=== PATIENT | male | born 1955 | race African-American/Black ===

== ENCOUNTER 2017-11-25 13:52 | Inpatient (IN) | payer MEDICARE, OTHER ==
[~2017-11-25] VITALS: Ht 322.6 cm; Wt 544.3 kg
[~2017-11-25 13:52] MED LIST: ACETAMINOPHEN325 M1 PEG; AMIODARONE HCL200 MG PEG; ASPIRIN81 MG PEG; ATORVASTATIN CA20 MG PEG; CARVEDILOL12.5 MG PO; CLONIDINE HCL0.1 MG PEG; COMBIVENT RESPIM4 GM IH; DOCUSATE SODIU100 MG PO; FAMOTIDINE20 MG PO; GUAIFENESI100 MG/5 M PEG; HYDRALAZINE HCL25 MG PEG; LACTULOSE20 GM/30 M PEG; LEVETIRACETAM500 MG PEG; LORAZEPAM0.5 MG PEG; MULTIVITAMINS1 EAC6 PEG; PRO-STAT 64 LI887 ML PEG; PROZAC20 MG PEG; TYLENOL WITH C1 EACH PEG; VITAMIN C500 M1 PEG
[2017-11-25] MEDS ORDERED: SODIUM CHLORIDE 0.9% 500ML 500 ML IV ONE (14:00)
--- NOTE | 2017-11-25 14:44 | Diagnostic Imaging Report ---
EXAMINATION: CHEST SINGLE (PORTABLE) INDICATION: Cough COMPARISON: Chest x-ray 10/04/2017 FINDINGS: AP view TUBES and LINES: None. LUNGS: Lungs are not well inflated. Calcified right hilar lymph nodes. Perihilar venous crowding. There is mild prominence of the central pulmonary vasculature, consistent with pulmonary venous congestion. PLEURA: Trace right pleural effusion along fissure. HEART AND MEDIASTINUM: Cardiac size is moderately enlarged. BONES AND SOFT TISSUES: No acute osseous lesion. Soft tissues are unremarkable. UPPER ABDOMEN: No free air under the diaphragm. IMPRESSION: Hypoinflated lungs with vascular crowding. Mild central pulmonary venous congestion. Signed by: Dr. Michael Simons M.D. on 11/25/2017 2:40 PM
[2017-11-25 15:30] LABS: BILIRUBIN,URINE NEGATIVE (NEGATIVE); COLOR,URINE YELLOW (YELLOW); KETONES,URINE NEGATIVE (NEGATIVE); LEUKOCYTE ESTERASE ,URINE 2+ (NEGATIVE); NITRITE,URINE NEGATIVE (NEGATIVE); URINE UROBILINOGEN 8 mg/dL (0.2 - 1)
[2017-11-25] MEDS ORDERED: ALTEPLASE RECOMBINANT 2 MG/2 ML VIAL IV ONE (15:30)
[2017-11-25 15:32] LABS: CLARITY,URINE SL CLOUDY (CLEAR); PROTEIN,URINE DIPSTICK TRACE (NEGATIVE)
[2017-11-25 15:44] LABS: BACTERIA,URINE FEW /HPF; EPITHELIAL CELLS,URINE FEW /LPF
[2017-11-25] MEDS ORDERED: SODIUM CHLORIDE 0.9% 250ML 250 ML ONE (18:11)
[2017-11-25 18:17] LABS: BASOPHILS % 0.3 % (0.0-1.0); EOSINOPHILS # (AUTO) 0.3 (0.0-0.4); HEMATOCRIT 40.4 % (38.2-49.6); HEMOGLOBIN 12.1 g/dL (14.0-18.0); LYMPHOCYTES # (AUTO) 2.7 (1.0-3.2); MEAN CORPUSCULAR HEMOGLOBIN 33.1 pg (28-32); MEAN CORPUSCULAR VOLUME 110.4 fL (81-99); MONOCYTES # (AUTO) 0.8 (0.2-0.8); MONOCYTES % 8.5 % (4.4-11.3); NEUTROPHILS % 60.7 % (38.7-80.0); PLATELET COUNT 135 x10e3/uL (140-360); RED BLOOD COUNT 3.66 x10e6/uL (4.3-5.7); RED CELL DISTRIBUTION WIDTH 15.9 % (11.7-14.4)
--- NOTE | 2017-11-25 18:20 | Diagnostic Imaging Report ---
EXAMINATION: CHEST XRAY LINE PLACEMENT INDICATION: \S\line placement COMPARISON: Chest x-ray 11/25/2017 at 1420. 10/04/2017 FINDINGS: AP view TUBES and LINES: New right IJ central venous catheter with tip at the high SVC. LUNGS: Lungs are not well inflated. Calcified right hilar lymph nodes. Perihilar venous crowding. There is mild prominence of the central pulmonary vasculature, consistent with pulmonary venous congestion. PLEURA: Trace right pleural effusion along fissure. HEART AND MEDIASTINUM: Cardiac size is moderately enlarged. There are atherosclerotic calcifications within the aorta. BONES AND SOFT TISSUES: No acute osseous lesion. Soft tissues are unremarkable. UPPER ABDOMEN: No free air under the diaphragm. IMPRESSION: 1. New right IJ line with tip at high SVC. No pneumothorax. 2. No change in hypoinflated lungs with vascular crowding. Mild central pulmonary venous congestion. Signed by: Dr. Michael Simons M.D. on 11/25/2017 6:17 PM
[2017-11-25] MEDS ORDERED: LACTATED RINGER'S 1,000 ML IV ONE (18:30)
[2017-11-25 18:34] LABS: ALANINE AMINOTRANSFERASE 41 IU/L (0-55); ALBUMIN 1.9 g/dL (3.5-5.0); ALBUMIN/GLOBULIN RATIO 0.4 (0.8-2.0); ALKALINE PHOSPHATASE 43 IU/L (40-150); ANION GAP 11.4 mmol/L (8-16); BLOOD UREA NITROGEN 36 mg/dL (7-26); BUN/CREATININE RATIO 38 (6-25); CALCIUM 8.5 mg/dL (8.4-10.2); CARBON DIOXIDE 26 mmol/L (22-29); CHLORIDE 132 mmol/L (98-107); CREATININE, SERUM 0.95 mg/dL (0.72-1.25); EST GLOMERULAR FILTRATION RATE > 60 ML/MIN (60-); GLUCOSE 84 mg/dL (74-118); POTASSIUM 3.4 mmol/L (3.5-5.1)
[2017-11-25] MEDS ORDERED: DEXTROSE 5% 1,000 ML IV ONE (18:45)
[2017-11-25 19:11] LABS: SODIUM 166 mmol/L (136-145)
[2017-11-25] MEDS: AZITHROMYCIN 500MG/NS 250 ML 250 ML IV SCH (20:48)
[2017-11-26 00:03] VITALS: BP 101/56
[2017-11-26] MEDS: DEXTROSE 5% 1,000 ML IV SCH ×3 (02:06→19:24)
[2017-11-26 06:53] LABS: ALANINE AMINOTRANSFERASE 41 IU/L (0-55); ALBUMIN 1.9 g/dL (3.5-5.0); ALBUMIN/GLOBULIN RATIO 0.4 (0.8-2.0); ALKALINE PHOSPHATASE 44 IU/L (40-150); ANION GAP 10.3 mmol/L (8-16); BLOOD UREA NITROGEN 32 mg/dL (7-26); BUN/CREATININE RATIO 34 (6-25); CALCIUM 8.5 mg/dL (8.4-10.2); CARBON DIOXIDE 30 mmol/L (22-29); CHLORIDE 130 mmol/L (98-107); CREATININE, SERUM 0.93 mg/dL (0.72-1.25); EST GLOMERULAR FILTRATION RATE > 60 ML/MIN (60-); GLUCOSE 89 mg/dL (74-118); POTASSIUM 3.3 mmol/L (3.5-5.1)
[2017-11-26 07:05] LABS: SODIUM 167 mmol/L (136-145)
[2017-11-26] MEDS: COLLAGENASE 5 GM TUBE TP SCH (17:00)
[2017-11-26] MEDS: BALSAM PERU/CASTOR OIL 60 GM OINT...G. TP SCH (17:00)
[2017-11-26] MEDS ORDERED: DEXTROSE 5% 1,000 ML IV ONE ×2 (17:15→18:15)
[2017-11-26] MEDS ORDERED: POTASSIUM CHLORIDE 20MEQ/100ML 100 ML IV ONE (17:30)
[2017-11-26] MEDS: ALBUTEROL/IPRATROPIUM 3 ML NEB NEB SCH ×2 (17:30→19:00)
[2017-11-26] MEDS ORDERED: DOCUSATE SODIUM 100 MG CAP PEG PRN (17:30)
[2017-11-26] MEDS ORDERED: GUAIFENESIN 600 MG TAB PEG PRN (17:30)
[2017-11-26] MEDS ORDERED: HYDRALAZINE HCL 20 MG/ML VIAL IV PRN (17:30)
[2017-11-26] MEDS ORDERED: GUAIFENESIN 200 MG/10 ML UDC PEG PRN (17:30)
[2017-11-26] MEDS ORDERED: LORAZEPAM 0.5 MG TAB PEG PRN (17:30)
[2017-11-26] MEDS ORDERED: ACETAMINOPHEN 325 MG TAB PEG PRN (17:30)
[2017-11-26] MEDS ORDERED: ACETAMINOPHEN 325 MG/10 ML UDC PEG PRN (17:45)
[2017-11-26] MEDS ORDERED: ACETAMINOPHEN 325 MG/10 ML UDC PO PRN (17:45)
[2017-11-26] MEDS: AZITHROMYCIN 500MG/NS 250 ML 250 ML IV SCH (19:24)
[2017-11-26 19:35] VITALS: BP 139/81
[2017-11-26 19:41] VITALS: BP 139/81
[2017-11-26 19:47] VITALS: BP 139/81
[2017-11-26] MEDS: METHYLPREDNISOLONE SOD SUCC 40 MG/ML VIAL IV SCH (21:10)
[2017-11-26] MEDS: HYDRALAZINE HCL 25 MG TAB PEG SCH (21:10)
[2017-11-26] MEDS: ATORVASTATIN 20 MG TAB PEG SCH (21:10)
[2017-11-27] MEDS: DEXTROSE 5% 1,000 ML IV SCH (00:21)
[2017-11-27 00:30] VITALS: BP 123/58
[2017-11-27] MEDS: ALBUTEROL/IPRATROPIUM 3 ML NEB NEB SCH ×3 (01:00→20:00)
[2017-11-27] MEDS: METHYLPREDNISOLONE SOD SUCC 40 MG/ML VIAL IV SCH ×3 (06:14→23:09)
[2017-11-27 06:52] LABS: BASOPHILS % 0.2 % (0.0-1.0); HEMATOCRIT 38.9 % (38.2-49.6); HEMOGLOBIN 11.8 g/dL (14.0-18.0); LYMPHOCYTES # (AUTO) 0.9 (1.0-3.2); LYMPHOCYTES % 14.4 % (18.0-39.1); MEAN CORPUSCULAR HEMOGLOBIN 33.1 pg (28-32); MEAN CORPUSCULAR HGB CONC 30.3 g/dL (31-35); MONOCYTES # (AUTO) 0.1 (0.2-0.8); MONOCYTES % 1.2 % (4.4-11.3); NEUTROPHILS % 83.7 % (38.7-80.0); PLATELET COUNT 133 x10e3/uL (140-360); RED BLOOD COUNT 3.57 x10e6/uL (4.3-5.7); RED CELL DISTRIBUTION WIDTH 15.1 % (11.7-14.4)
[2017-11-27 07:17] LABS: ANION GAP 8.5 mmol/L (8-16); BLOOD UREA NITROGEN 27 mg/dL (7-26); BUN/CREATININE RATIO 32 (6-25); CALCIUM 8.4 mg/dL (8.4-10.2); CARBON DIOXIDE 27 mmol/L (22-29); CHLORIDE 129 mmol/L (98-107); CREATININE, SERUM 0.84 mg/dL (0.72-1.25); EST GLOMERULAR FILTRATION RATE > 60 ML/MIN (60-); GLUCOSE 137 mg/dL (74-118); MAGNESIUM 2.1 MG/DL (1.3-2.1); POTASSIUM 3.5 mmol/L (3.5-5.1)
[2017-11-27 07:24] LABS: SODIUM 161 mmol/L (136-145)
--- NOTE | 2017-11-27 07:26 | Diagnostic Imaging Report ---
Examination: Single AP view of the chest. COMPARISON: 11/25/2017 INDICATION: Bronchitis DISCUSSION: See impression IMPRESSION: 1. Right internal jugular central venous catheter is unchanged in position. 2. Stable cardiomediastinal contour with mild enlargement of the cardiac shadow and pulmonary venous congestion. No new airspace consolidation. Signed by: Dr. Rod Mosqueda M.D. on 11/27/2017 7:23 AM
[2017-11-27 07:40] LABS: FREE T4 (FREE THYROXINE) 1.23 ng/dL (0.8-1.8); THYROID STIMULATING HORMONE 0.662 uIU/mL (0.350-4.940)
[2017-11-27 08:00] VITALS: BP 119/58
[2017-11-27 08:21] VITALS: BP 119/58
[2017-11-27] MEDS ORDERED: COLLAGENASE OINTMENT 30 GM TUBE TP SCH (09:00)
[2017-11-27] MEDS ORDERED: CARVEDILOL 12.5 MG TAB PEG SCH (09:00)
[2017-11-27] MEDS ORDERED: LEVETIRACETAM 500 MG TAB PEG SCH (09:00)
[2017-11-27] MEDS ORDERED: MULTIVITAMINS/MINERALS TAB PEG SCH (09:00)
[2017-11-27] MEDS: HYDRALAZINE HCL 25 MG TAB PEG SCH ×3 (09:00→21:00)
[2017-11-27] MEDS ORDERED: DEXTROSE 5% 1,000 ML IV SCH (09:30)
[2017-11-27] MEDS ORDERED: FUROSEMIDE INJ 10 MG/ML 4 ML VIAL IV ONE (10:00)
[2017-11-27] MEDS: FAMOTIDINE 20 MG TAB PEG SCH ×2 (10:41→18:32)
[2017-11-27] MEDS: LEVETIRACETAM ORAL SOLUTION 500 MG/5 ML SOLN PEG SCH ×2 (10:41→18:32)
[2017-11-27] MEDS: AMIODARONE HCL 200 MG TAB PEG SCH (10:41)
[2017-11-27] MEDS: LACTULOSE SYRUP 20 GM/30 ML UDC PEG SCH (10:41)
[2017-11-27] MEDS: ASPIRIN 81 MG CHEW TAB PEG SCH (10:41)
[2017-11-27] MEDS: MULTIVITAMINS 5 ML LIQUID PEG SCH (10:41)
--- NOTE | 2017-11-27 12:09 | Diagnostic Imaging Report ---
PROCEDURE:ABDOMINAL ULTRASOUND COMPARISON:Abdominal ultrasound 10/02/2017. INDICATIONS:DISTENTION FINDINGS: Liver: 10.4 cm in length in the right midclavicular line. Normal hepatic parenchymal echogenicity. No focal mass. Main portal vein: 1 cm in caliber. Hepatopedal flow. Gallbladder: Mild wall thickening likely attributable to gallbladder collapse. No calculus or pericholecystic fluid. Common Bile Duct: 0.4 cm in caliber. No echogenic filling defect. Sonographic Dahl's sign: Reported as negative. Right kidney: 10.9 cm in length. No solid or cystic mass, echogenic calculi, or hydronephrosis. Increased parenchymal echogenicity. Left kidney: 9.2 cm in length. No solid or cystic mass, echogenic calculi, or hydronephrosis. Increased parenchymal echogenicity. Spleen: 8.3 cm in length. Normal parenchymal echotexture. Pancreas: The visualized portions of the pancreas are normal. Inferior vena cava: Patent. Aorta: Non-aneurysmal. Ascites: None. CONCLUSION: Collapsed gallbladder without cholelithiasis or sonographic evidence of acute cholecystitis. Increased renal cortical echogenicity suggestive of medical renal disease. Dictated by: Rod Mosqueda M.D. on 11/27/2017 at 12:17 Electronically approved by: Rod Mosqueda M.D. on 11/27/2017 at 12:17
[2017-11-27 12:35] VITALS: BP 141/63
--- NOTE | 2017-11-27 14:08 | Consultation ---
DATE OF CONSULTATION: PULMONARY CONSULTATION REASON FOR THE CONSULT: Cough. HPI: Mr. Benjamin is a 62-year-old male. He is nonverbal, is a care home resident from [facility], was brought into the emergency room because of altered mental status. Patient was having cough and fever as well. Per the ER records, he is unable to give any history as he is nonverbal. His influenza testing was negative. Review of lab data shows that patient's white count of 5000, hemoglobin 11.8. Chemistry showing sodium of 167 on admission, it is 161 now. His chest x-ray, I reviewed the images showing possibility of right lower lobe infiltrate versus congestion. REVIEW OF SYSTEMS: Unable to elicit any as patient is nonverbal. PAST MEDICAL HISTORY 1. Hypernatremia. 2. Bedbound. 3. PEG tube status. 4. Dementia. 5. Hypertension. 6. Atrial fibrillation. 7. History of stroke. FAMILY HISTORY AND SOCIAL HISTORY: He lives at [facility]. PHYSICAL EXAM VITALS: Temperature 97.2, pulse of 60, blood pressure 119/58, respiratory rate of 18, O2 sat 100% on 4 liters. SKIN: Warm and dry. GENERAL APPEARANCE: He is a middle-aged male, aphasic, noncommunicative. HEENT: Head atraumatic, normocephalic. NECK: Supple. CHEST: Prolonged expiratory phase, no wheezing. HEART: S1, S2 audible. ABDOMEN: Soft, has a PEG tube. EXTREMITIES: No clubbing or cyanosis. LABORATORY DATA: Sodium 161, potassium 3.5, chloride 129, bicarb 27, BUN 27, creatinine 0.8. White count of 5000, hemoglobin 11.8, platelets 133. Influenza is negative. ASSESSMENT: Mr. Benjamin is a 62-year-old male who is in vegetative state. He is aphasic, noncommunicative, presented with altered mental status, found to be hypernatremia, also was having dry cough and prolonged expiratory phase on exam. Chest x-ray is showing possibility of pneumonia. I have compared the films from 11/27/2017 to 09/26/2017 and possibly can have right middle lobe infiltrate. CURRENT PROBLEMS 1. Possibly aspiration pneumonia, pneumonitis. 2. Reactive airways and cough due to pneumonitis. 3. Hypernatremia. 4. Dehydration. 5. Persistent vegetative state. 6. Aphasic and noncommunicative. 7. PEG tube status. 8. Bedbound. PLAN 1. Agree with IV D5W bolus, which was ordered. Will start the patient on free water through PEG tube. 2. Will continue the patient on Solu-Medrol, will reduce the dose, possibly has reactive airways due to aspiration pneumonitis. 3. Start the patient on nebulizer treatment as well. 4. I will start the patient on IV Zosyn. I think possibly patient has aspiration pneumonitis. Thank you for this consult. Job#: [id number] PAT
[2017-11-27] MEDS: PIPER-TAZ 3.375 GM 50 ML IV SCH ×2 (14:56→23:09)
[2017-11-27 16:50] VITALS: BP 124/58
[2017-11-27] MEDS: BALSAM PERU/CASTOR OIL 60 GM OINT...G. TP SCH ×2 (17:31→18:54)
[2017-11-27] MEDS: MAGNESIUM OXIDE 400 MG TAB PEG SCH (18:32)
[2017-11-27] MEDS: ZINC SULFATE 220 MG CAP PEG SCH (18:32)
[2017-11-27] MEDS: ASCORBIC ACID 500 MG TAB PEG SCH (18:32)
[2017-11-27] MEDS: OYST-CAL-D 500MG TABLET PEG SCH (18:32)
[2017-11-27] MEDS: COLLAGENASE 5 GM TUBE TP SCH (18:53)
[2017-11-27] MEDS: BUDESONIDE 0.5MG/2 ML NEB INH SCH (19:00)
[2017-11-27 20:00] VITALS: BP 114/58
[2017-11-27] MEDS: ATORVASTATIN 20 MG TAB PEG SCH (23:09)
[2017-11-28] VITALS (7 sets, daily range): BP systolic 101–146; BP diastolic 57–69
[2017-11-28] MEDS: ALBUTEROL/IPRATROPIUM 3 ML NEB NEB SCH ×4 (01:00→20:06)
[2017-11-28] MEDS: PIPER-TAZ 3.375 GM 50 ML IV SCH ×3 (05:23→23:40)
[2017-11-28] MEDS: METHYLPREDNISOLONE SOD SUCC 40 MG/ML VIAL IV SCH ×3 (05:23→23:40)
[2017-11-28 06:09] LABS: BASOPHILS % 0.1 % (0.0-1.0); HEMATOCRIT 39.3 % (38.2-49.6); HEMOGLOBIN 11.8 g/dL (14.0-18.0); LYMPHOCYTES # (AUTO) 1.2 (1.0-3.2); LYMPHOCYTES % 10.5 % (18.0-39.1); MEAN CORPUSCULAR VOLUME 106.5 fL (81-99); MONOCYTES # (AUTO) 0.2 (0.2-0.8); MONOCYTES % 1.9 % (4.4-11.3); NEUTROPHILS # (AUTO) 9.6 (2.1-6.9); PLATELET COUNT 140 x10e3/uL (140-360); RED BLOOD COUNT 3.69 x10e6/uL (4.3-5.7); RED CELL DISTRIBUTION WIDTH 14.6 % (11.7-14.4)
[2017-11-28 06:39] LABS: ANION GAP 9.2 mmol/L (8-16); BLOOD UREA NITROGEN 31 mg/dL (7-26); BUN/CREATININE RATIO 35 (6-25); CALCIUM 8.4 mg/dL (8.4-10.2); CARBON DIOXIDE 27 mmol/L (22-29); CHLORIDE 124 mmol/L (98-107); CREATININE, SERUM 0.89 mg/dL (0.72-1.25); EST GLOMERULAR FILTRATION RATE > 60 ML/MIN (60-); GLUCOSE 113 mg/dL (74-118); POTASSIUM 3.2 mmol/L (3.5-5.1); SODIUM 157 mmol/L (136-145)
[2017-11-28] MEDS: BUDESONIDE 0.5MG/2 ML NEB INH SCH ×2 (07:00→19:00)
[2017-11-28] MEDS ORDERED: POTASSIUM CHLORIDE 20 MEQ TAB CR PO STA (09:23)
[2017-11-28] MEDS ORDERED: DEXTROSE 5% 1,000 ML IV ONE (09:30)
[2017-11-28] MEDS: MULTIVITAMINS 5 ML LIQUID GT SCH (10:00)
[2017-11-28] MEDS: ZINC SULFATE 220 MG CAP PEG SCH ×2 (10:01→18:22)
[2017-11-28] MEDS: FAMOTIDINE 20 MG TAB PEG SCH ×2 (10:01→18:22)
[2017-11-28] MEDS: BALSAM PERU/CASTOR OIL 60 GM OINT...G. TP SCH ×2 (10:01→18:22)
[2017-11-28] MEDS: ASCORBIC ACID 500 MG TAB PEG SCH ×2 (10:01→18:22)
[2017-11-28] MEDS: LACTULOSE SYRUP 20 GM/30 ML UDC PEG SCH (10:01)
[2017-11-28] MEDS: ASPIRIN 81 MG CHEW TAB PEG SCH (10:01)
[2017-11-28] MEDS: AMIODARONE HCL 200 MG TAB PEG SCH (10:01)
[2017-11-28] MEDS: MAGNESIUM OXIDE 400 MG TAB PEG SCH ×2 (10:01→18:22)
[2017-11-28] MEDS: OYST-CAL-D 500MG TABLET PEG SCH ×2 (10:01→18:22)
[2017-11-28] MEDS: LEVETIRACETAM ORAL SOLUTION 500 MG/5 ML SOLN PEG SCH ×2 (10:01→18:22)
[2017-11-28] MEDS: MULTIVITAMINS 5 ML LIQUID PEG SCH (10:01)
[2017-11-28] MEDS: HYDRALAZINE HCL 25 MG TAB PEG SCH ×3 (10:01→21:00)
[2017-11-28] MEDS: COLLAGENASE 5 GM TUBE TP SCH (10:01)
[2017-11-28] MEDS: AZITHROMYCIN 500MG/NS 250 ML 250 ML IV SCH ×2 (20:25→22:00)
[2017-11-28] MEDS: ATORVASTATIN 20 MG TAB PEG SCH (21:00)
[2017-11-28] MEDS ORDERED: SODIUM CHLORIDE 0.9% 250ML 250 ML ONE (23:39)
[2017-11-29] VITALS (8 sets, daily range): BP systolic 106–149; BP diastolic 59–70
--- NOTE | 2017-11-29 00:08 | Progress Note ---
DATE: PCP: Dr. Ricardo Cespedes. ALLIGATOR SHEAR OPERATOR: Dr. Celso Diallo. CHIEF COMPLAINT: Bronchitis, hypernatremia. SUBJECTIVE: Patient is alone. Patient is nonverbal. MEDICATIONS: Please see MAR. OBJECTIVE VITALS: Temperature 98.6, pulse 83, blood pressure 130/61, respirations 20, satting 100%. GENERAL: Patient's eyes are open, no apparent distress. Patient is nonverbal. LUNGS: Decreased breath sounds. Audible congestion with cough. HEENT: Extraocular muscles are intact. ABDOMEN: Soft. Bowel sounds present. Nondistended. Patient has a PEG tube in place with continuous feeds, tolerates well. CARDIOVASCULAR: Irregularly irregular heart rate. NEUROLOGICAL: Patient is aphasic. EXTREMITIES: Has left AKA. Right heel wound or ulcer. NECK: Supple. LABS: Sodium 157, potassium 3.2, chloride 124, CO2 27, BUN 31, creatinine 0.89, glucose 113. White count 11, hemoglobin 11.8, hematocrit 39.3, platelets 140,000. His BNP was 426 today, came down from 768. DIAGNOSES 1. Hypernatremia: Will restart D5W at 75 mL per hour. 2. Hypokalemia: Will replete potassium with 30 mEq potassium via percutaneous endoscopic gastrostomy tube . 3. Hypertension: Will continue to monitor and evaluate blood pressure. 4. History of seizures: Will continue on antiseizure medications. Dictated by Zac Day NP. Job#: [id number]
[2017-11-29] MEDS: PIPER-TAZ 3.375 GM 50 ML IV SCH ×3 (00:10→15:35)
[2017-11-29] MEDS: ALBUTEROL/IPRATROPIUM 3 ML NEB NEB SCH ×4 (01:35→20:00)
--- NOTE | 2017-11-29 01:49 | Consultation ---
DATE OF CONSULTATION: November 28, 2017 GI CONSULT NOTE DATE OF : 1955 REFERRING PHYSICIAN: Alcides Alfonso MD REASON FOR CONSULT: PEG tube clogged. HISTORY OF PRESENTING ILLNESS: A 62-year-old male, who is a [facility] resident. He got admitted with altered mental status. He was found to have profound hypernatremia. He is nonverbal. He has a PEG tube. PEG tube got clogged. GI is being consulted for replacement. REVIEW OF SYSTEMS: Unobtainable. PAST MEDICAL HISTORY: Dementia, hypertension, atrial fibrillation, history of recurrent strokes. PAST SURGICAL HISTORY: EGD/ PEG placement. FAMILY HISTORY: Noncontributory. SOCIAL HISTORY: long term resident. He lives in [facility]. No smoking, alcohol or any illicit drug use. ALLERGIES: NO KNOWN DRUG ALLERGIES. HOME MEDICATIONS: Reviewed as per JAN. INPATIENT MEDICATIONS: Reviewed as per JAN. He is on intravenous Zosyn along with other medication. PHYSICAL EXAMINATION VITAL SIGNS: Temperature 98.1, pulse 56, respirations 20, blood pressure 124/64, oxygen saturation 98% on room air. GENERAL: Not in any apparent distress. HEENT: Oral mucosa is moist. Anicteric sclerae. CVS: S1, S2, regular. LUNGS: Bilaterally grossly clear, poor inspiratory efforts. ABDOMEN: Obese, soft, nondistended, nontender. No palpable mass or hernia. Bowel sounds present. PEG site is clean, clear. No discharge or any bleeding. The PEG tubing is clogged. EXTREMITIES: Left AKA. LAB: WBC 11.07, hemoglobin 11.9, hematocrit 39.3, MCV 106.5, platelet count 140,000. Sodium has come down to 157 from 167, potassium 3.2, chloride 124, bicarb 27, BUN 31, creatinine 0.89, glucose 113. Liver tests with ALT mildly elevated 266, AST 66, ALT 41, total bilirubin 0.6, alk phosphatase 44. Chest x-ray, stable cardiomediastinal contour with mild enlargement of cardiac shadow and pulmonary venous congestion. No acute infiltrate. Abdominal ultrasound showed collapsed gallbladder without cholelithiasis or sonographic evidence of acute cholecystitis. Increased renal cortical echogenicity suggestive of medical renal disease. IMPRESSION: Percutaneous endoscopic gastrostomy tubing is clogged. This cannot be flushed. Needs replacement. PLAN: Will replace balloon-type gastrostomy tube at bedside tomorrow. In the interim, do not attempt to use percutaneous endoscopic gastrostomy for feeding, medication or hydration. If at all, enteral percutaneous endoscopic gastrostomy required, then consider nasogastric tube placement. I thank, Dr. Alfonso, for allowing me to participate in the care of this patient. Job#: [id number] CQ MTDD
[2017-11-29] MEDS: METHYLPREDNISOLONE SOD SUCC 40 MG/ML VIAL IV SCH ×2 (05:35→15:35)
[2017-11-29] MEDS: BUDESONIDE 0.5MG/2 ML NEB INH SCH ×2 (07:00→20:00)
[2017-11-29] MEDS: LEVETIRACETAM ORAL SOLUTION 500 MG/5 ML SOLN PEG SCH ×2 (09:00→16:40)
[2017-11-29] MEDS: FAMOTIDINE 20 MG TAB PEG SCH ×2 (09:00→16:41)
[2017-11-29] MEDS: MULTIVITAMINS 5 ML LIQUID PEG SCH (09:00)
[2017-11-29] MEDS: MAGNESIUM OXIDE 400 MG TAB PEG SCH ×2 (09:00→16:41)
[2017-11-29] MEDS: OYST-CAL-D 500MG TABLET PEG SCH ×2 (09:00→16:41)
[2017-11-29] MEDS: COLLAGENASE 5 GM TUBE TP SCH (09:00)
[2017-11-29] MEDS: LACTULOSE SYRUP 20 GM/30 ML UDC PEG SCH (09:00)
[2017-11-29] MEDS: HYDRALAZINE HCL 25 MG TAB PEG SCH ×3 (09:00→21:00)
[2017-11-29] MEDS: BALSAM PERU/CASTOR OIL 60 GM OINT...G. TP SCH ×2 (09:00→16:42)
[2017-11-29] MEDS: ZINC SULFATE 220 MG CAP PEG SCH ×2 (09:00→16:42)
[2017-11-29] MEDS: ASPIRIN 81 MG CHEW TAB PEG SCH (09:00)
[2017-11-29] MEDS: ASCORBIC ACID 500 MG TAB PEG SCH ×2 (09:00→16:42)
[2017-11-29] MEDS: MULTIVITAMINS 5 ML LIQUID GT SCH (09:00)
[2017-11-29 11:56] LABS: HEMATOCRIT 35.8 % (38.2-49.6); HEMOGLOBIN 11.5 g/dL (14.0-18.0); LYMPHOCYTES # (AUTO) 0.9 (1.0-3.2); LYMPHOCYTES % 8.3 % (18.0-39.1); MEAN CORPUSCULAR HEMOGLOBIN 32.8 pg (28-32); MEAN CORPUSCULAR HGB CONC 32.1 g/dL (31-35); MONOCYTES # (AUTO) 0.2 (0.2-0.8); MONOCYTES % 1.9 % (4.4-11.3); NEUTROPHILS % 89.2 % (38.7-80.0); PLATELET COUNT 131 x10e3/uL (140-360); RED BLOOD COUNT 3.51 x10e6/uL (4.3-5.7); RED CELL DISTRIBUTION WIDTH 14.4 % (11.7-14.4)
[2017-11-29 12:14] LABS: ANION GAP 10.4 mmol/L (8-16); BLOOD UREA NITROGEN 38 mg/dL (7-26); BUN/CREATININE RATIO 38 (6-25); CALCIUM 8.3 mg/dL (8.4-10.2); CARBON DIOXIDE 26 mmol/L (22-29); CHLORIDE 122 mmol/L (98-107); EST GLOMERULAR FILTRATION RATE > 60 ML/MIN (60-); GLUCOSE 113 mg/dL (74-118); POTASSIUM 3.4 mmol/L (3.5-5.1); SODIUM 155 mmol/L (136-145)
[2017-11-29] MEDS: DEXTROSE 5% 1,000 ML IV SCH (15:31)
[2017-11-29] MEDS ORDERED: POTASSIUM CHLORIDE 20MEQ/100ML 100 ML IV ONE (15:45)
[2017-11-29] MEDS ORDERED: METOPROLOL TARTRATE INJ 1 MG/ML VIAL IV PRN (15:45)
[2017-11-29] MEDS: ATORVASTATIN 20 MG TAB PEG SCH (22:40)
[2017-11-29] MEDS: AZITHROMYCIN 500MG/NS 250 ML 250 ML IV SCH (22:40)
--- NOTE | 2017-11-29 23:50 | Operative Report ---
DATE OF PROCEDURE: PROCEDURE: Percutaneous endoscopic gastrostomy replacement at bedside. PROCEDURE DETAILS: Patient was maintained in supine position. The old PEG tube was pulled out. Gastrostomy site showed some oozing which stopped spontaneously. A 20-Bur[place] balloon type G-tube was inserted through the gastrostomy and advanced into the gastric cavity. Balloon was inflated with 10 mL of normal saline. Tube was pulled back and fastener was advanced on the abdominal wall. G-tube was successfully replaced, in good position. PLAN: G-tube can be used for medication, water flushes as well as feeding. Job#: [id number]
[2017-11-30] VITALS (7 sets, daily range): BP systolic 110–149; BP diastolic 55–85
[2017-11-30] MEDS: ALBUTEROL/IPRATROPIUM 3 ML NEB NEB SCH ×4 (01:00→21:00)
[2017-11-30] MEDS: PIPER-TAZ 3.375 GM 50 ML IV SCH ×3 (06:20→23:45)
[2017-11-30] MEDS: BUDESONIDE 0.5MG/2 ML NEB INH SCH ×2 (06:44→21:00)
[2017-11-30] MEDS: DEXTROSE 5% 1,000 ML IV SCH (08:59)
[2017-11-30] MEDS: COLLAGENASE 5 GM TUBE TP SCH (09:00)
[2017-11-30] MEDS: LACTULOSE SYRUP 20 GM/30 ML UDC PEG SCH (09:00)
[2017-11-30] MEDS: LEVETIRACETAM ORAL SOLUTION 500 MG/5 ML SOLN PEG SCH ×2 (09:00→16:21)
[2017-11-30] MEDS: OYST-CAL-D 500MG TABLET PEG SCH ×2 (09:00→16:21)
[2017-11-30] MEDS: HYDRALAZINE HCL 25 MG TAB PEG SCH ×2 (09:00→15:00)
[2017-11-30] MEDS: MAGNESIUM OXIDE 400 MG TAB PEG SCH ×2 (09:00→16:21)
[2017-11-30] MEDS: BALSAM PERU/CASTOR OIL 60 GM OINT...G. TP SCH ×2 (09:00→16:22)
[2017-11-30] MEDS: ASCORBIC ACID 500 MG TAB PEG SCH ×2 (09:00→16:21)
[2017-11-30] MEDS: ZINC SULFATE 220 MG CAP PEG SCH ×2 (09:00→16:21)
[2017-11-30] MEDS: MULTIVITAMINS 5 ML LIQUID GT SCH (09:00)
[2017-11-30] MEDS: ASPIRIN 81 MG CHEW TAB PEG SCH (09:00)
[2017-11-30] MEDS: FAMOTIDINE 20 MG TAB PEG SCH ×2 (09:00→16:21)
[2017-11-30] MEDS: METHYLPREDNISOLONE SOD SUCC 40 MG/ML VIAL IV SCH ×2 (09:00→16:21)
[2017-11-30 09:10] LABS: BASOPHILS % 0.1 % (0.0-1.0); HEMATOCRIT 35.9 % (38.2-49.6); HEMOGLOBIN 11.3 g/dL (14.0-18.0); LYMPHOCYTES # (AUTO) 1.3 (1.0-3.2); LYMPHOCYTES % 11.2 % (18.0-39.1); MEAN CORPUSCULAR HEMOGLOBIN 32.6 pg (28-32); MEAN CORPUSCULAR HGB CONC 31.5 g/dL (31-35); MEAN CORPUSCULAR VOLUME 103.5 fL (81-99); MONOCYTES # (AUTO) 0.6 (0.2-0.8); MONOCYTES % 5.4 % (4.4-11.3); NEUTROPHILS # (AUTO) 9.4 (2.1-6.9); NEUTROPHILS % 82.5 % (38.7-80.0); PLATELET COUNT 122 x10e3/uL (140-360); RED BLOOD COUNT 3.47 x10e6/uL (4.3-5.7); RED CELL DISTRIBUTION WIDTH 14.5 % (11.7-14.4)
[2017-11-30 09:29] LABS: ANION GAP 9.5 mmol/L (8-16); BLOOD UREA NITROGEN 39 mg/dL (7-26); BUN/CREATININE RATIO 36 (6-25); CALCIUM 8.3 mg/dL (8.4-10.2); CARBON DIOXIDE 26 mmol/L (22-29); CHLORIDE 123 mmol/L (98-107); CREATININE, SERUM 1.09 mg/dL (0.72-1.25); EST GLOMERULAR FILTRATION RATE > 60 ML/MIN (60-); GLUCOSE 138 mg/dL (74-118); POTASSIUM 3.5 mmol/L (3.5-5.1); SODIUM 155 mmol/L (136-145)
[2017-11-30] MEDS: GUAIFENESIN 200 MG/10 ML UDC PEG SCH ×4 (10:00→22:09)
--- NOTE | 2017-11-30 11:07 | Consultation ---
DATE OF CONSULTATION: November 29, 2017 REASON FOR CONSULTATION: Bradycardia and AFib. CONSULTING PHYSICIAN: Pavel Weber MD HPI: This is an unfortunate 62-year-old male that presented from the snf for possible sepsis. According to the medical record and bedside notes, he had productive cough, low oxygen saturation with multiple wounds and he was brought over here for evaluation. He has a history of AFib, bedbound, history of seizure, and he is aphasic with feeding tube. He is not able to follow any command or verbalize any need. His EKG showed sinus bradycardia with non-ST abnormalities, and he was on amiodarone for the AFib. PAST MEDICAL HISTORY: Hypertension, diabetes, COPD, CVA, seizure, blindness, dementia, dysphagia, hyponatremia, sepsis, constipation, anxiety, contracture, depression, multiple wounds, and bedbound. PAST SURGICAL HISTORY: Left AKA and PEG tube. FAMILY HISTORY: Noncontributory. SOCIAL HISTORY: Lives in a snf. MEDICATIONS: See med list. ALLERGIES: HE IS NOT ALLERGIC TO ANY MEDICATION. REVIEW OF SYSTEMS: Negative except those mentioned above. PHYSICAL EXAMINATION VITAL SIGNS: Temperature 98, heart rate 55, blood pressure 115/55, respirations 20, oxygen saturation 95% on 2 liters nasal cannula. GENERAL: He is noncommunicative and bedbound. HEENT: Mucous membrane moist. NECK: Supple. LUNGS: With decreased breath sounds. CARDIOVASCULAR: S1 and S2 present. ABDOMEN: Soft with PEG tube. EXTREMITIES: Left AKA and no edema on the right. NEUROLOGIC: Not able to follow any command or verbalize any need. LABORATORY DATA: Sodium 135, potassium 3.4, chloride 122, CO2 of 26, BUN 38, creatinine 1.00, glucose 113. White blood cell 11.2, hemoglobin 11.5, hematocrit 35.8, platelet 131. IMPRESSION 1. Paroxysmal atrial fibrillation. 2. Hyponatremia. 3. Hypertension. 4. Bedbound with multiple wounds. 5. History of seizure. 6. History of cerebrovascular accident. ASSESSMENT AND PLAN: We will get an echo to assess the LV and the valve function. His heart rate fluctuates from clara and tachy at times. We will go ahead and hold amiodarone. Will continue current cefepime treatment. Will replace his potassium. He is getting D5 water for the high sodium. Further cardiac workup pending clinical course. Thank you for this consultation. Dictated by: Davis Ewing NP Job#: [id number] PAT
[2017-11-30] MEDS: ATORVASTATIN 20 MG TAB PEG SCH (22:09)
[2017-11-30] MEDS: AZITHROMYCIN 500MG/NS 250 ML 250 ML IV SCH (22:10)
[2017-12-01] VITALS (8 sets, daily range): BP systolic 133–159; BP diastolic 70–97
[2017-12-01] MEDS: GUAIFENESIN 200 MG/10 ML UDC PEG SCH ×6 (01:26→22:00)
[2017-12-01] MEDS: HYDRALAZINE HCL 25 MG TAB PEG SCH ×4 (01:32→21:19)
[2017-12-01] MEDS: ALBUTEROL/IPRATROPIUM 3 ML NEB NEB SCH ×4 (02:35→20:00)
[2017-12-01] MEDS: DEXTROSE 5% 1,000 ML IV SCH ×2 (03:46→09:07)
[2017-12-01] MEDS: PIPER-TAZ 3.375 GM 50 ML IV SCH ×3 (05:46→22:00)
[2017-12-01] MEDS: BUDESONIDE 0.5MG/2 ML NEB INH SCH ×2 (07:00→20:00)
[2017-12-01 07:39] LABS: BASOPHILS % 0.1 % (0.0-1.0); HEMATOCRIT 35.4 % (38.2-49.6); HEMOGLOBIN 11.4 g/dL (14.0-18.0); LYMPHOCYTES # (AUTO) 0.8 (1.0-3.2); LYMPHOCYTES % 7.4 % (18.0-39.1); MEAN CORPUSCULAR HEMOGLOBIN 32.8 pg (28-32); MEAN CORPUSCULAR HGB CONC 32.2 g/dL (31-35); MEAN CORPUSCULAR VOLUME 101.7 fL (81-99); MONOCYTES # (AUTO) 0.4 (0.2-0.8); MONOCYTES % 3.9 % (4.4-11.3); NEUTROPHILS # (AUTO) 9.4 (2.1-6.9); NEUTROPHILS % 87.1 % (38.7-80.0); PLATELET COUNT 109 x10e3/uL (140-360); RED BLOOD COUNT 3.48 x10e6/uL (4.3-5.7); RED CELL DISTRIBUTION WIDTH 14.3 % (11.7-14.4)
[2017-12-01 07:55] LABS: ANION GAP 10.4 mmol/L (8-16); BLOOD UREA NITROGEN 33 mg/dL (7-26); BUN/CREATININE RATIO 38 (6-25); CALCIUM 8.1 mg/dL (8.4-10.2); CARBON DIOXIDE 25 mmol/L (22-29); CHLORIDE 117 mmol/L (98-107); CREATININE, SERUM 0.88 mg/dL (0.72-1.25); EST GLOMERULAR FILTRATION RATE > 60 ML/MIN (60-); GLUCOSE 139 mg/dL (74-118); MAGNESIUM 1.9 MG/DL (1.3-2.1); POTASSIUM 3.4 mmol/L (3.5-5.1); SODIUM 149 mmol/L (136-145)
[2017-12-01] MEDS: ASCORBIC ACID 500 MG TAB PEG SCH ×2 (09:00→17:00)
[2017-12-01] MEDS: ASPIRIN 81 MG CHEW TAB PEG SCH (09:00)
[2017-12-01] MEDS ORDERED: POTASSIUM CHLORIDE 10MEQ/100ML 200 ML IV ONE (09:00)
[2017-12-01] MEDS: MAGNESIUM OXIDE 400 MG TAB PEG SCH ×2 (09:00→17:00)
[2017-12-01] MEDS: LEVETIRACETAM ORAL SOLUTION 500 MG/5 ML SOLN PEG SCH ×2 (09:00→17:00)
[2017-12-01] MEDS: MULTIVITAMINS 5 ML LIQUID GT SCH (09:00)
[2017-12-01] MEDS: LACTULOSE SYRUP 20 GM/30 ML UDC PEG SCH (09:00)
[2017-12-01] MEDS: ZINC SULFATE 220 MG CAP PEG SCH ×2 (09:00→17:00)
[2017-12-01] MEDS: METHYLPREDNISOLONE SOD SUCC 40 MG/ML VIAL IV SCH ×2 (09:00→17:00)
[2017-12-01] MEDS: FAMOTIDINE 20 MG TAB PEG SCH ×2 (09:00→17:00)
[2017-12-01] MEDS: COLLAGENASE 5 GM TUBE TP SCH (09:00)
[2017-12-01] MEDS: BALSAM PERU/CASTOR OIL 60 GM OINT...G. TP SCH ×2 (09:00→17:00)
[2017-12-01] MEDS: OYST-CAL-D 500MG TABLET PEG SCH ×2 (09:00→17:00)
[2017-12-01] MEDS: AZITHROMYCIN 500MG/NS 250 ML 250 ML IV SCH (19:31)
[2017-12-01] MEDS: ATORVASTATIN 20 MG TAB PEG SCH (21:19)
[2017-12-02] VITALS (7 sets, daily range): BP systolic 110–168; BP diastolic 78–94
[2017-12-02] MEDS: ALBUTEROL/IPRATROPIUM 3 ML NEB NEB SCH ×4 (01:45→18:45)
[2017-12-02] MEDS: GUAIFENESIN 200 MG/10 ML UDC PEG SCH ×6 (02:20→22:00)
[2017-12-02] MEDS: PIPER-TAZ 3.375 GM 50 ML IV SCH ×3 (05:51→22:00)
[2017-12-02] MEDS: BUDESONIDE 0.5MG/2 ML NEB INH SCH ×2 (07:35→18:45)
[2017-12-02] MEDS: LACTULOSE SYRUP 20 GM/30 ML UDC PEG SCH (09:00)
[2017-12-02] MEDS: MAGNESIUM OXIDE 400 MG TAB PEG SCH ×2 (09:00→17:00)
[2017-12-02] MEDS: ZINC SULFATE 220 MG CAP PEG SCH ×2 (09:00→17:00)
[2017-12-02] MEDS: MULTIVITAMINS 5 ML LIQUID GT SCH (09:00)
[2017-12-02] MEDS: OYST-CAL-D 500MG TABLET PEG SCH ×2 (09:00→17:00)
[2017-12-02] MEDS: COLLAGENASE 5 GM TUBE TP SCH (09:00)
[2017-12-02] MEDS: ASPIRIN 81 MG CHEW TAB PEG SCH (09:00)
[2017-12-02] MEDS: ASCORBIC ACID 500 MG TAB PEG SCH ×2 (09:00→17:00)
[2017-12-02] MEDS: LEVETIRACETAM ORAL SOLUTION 500 MG/5 ML SOLN PEG SCH ×2 (09:00→17:00)
[2017-12-02] MEDS: BALSAM PERU/CASTOR OIL 60 GM OINT...G. TP SCH ×2 (09:00→17:00)
[2017-12-02] MEDS: HYDRALAZINE HCL 25 MG TAB PEG SCH ×3 (09:00→21:18)
[2017-12-02] MEDS: FAMOTIDINE 20 MG TAB PEG SCH ×2 (09:00→17:00)
[2017-12-02 09:48] LABS: BASOPHILS % 0.2 % (0.0-1.0); HEMATOCRIT 36.7 % (38.2-49.6); HEMOGLOBIN 12.1 g/dL (14.0-18.0); LYMPHOCYTES # (AUTO) 0.7 (1.0-3.2); LYMPHOCYTES % 6.7 % (18.0-39.1); MEAN CORPUSCULAR HEMOGLOBIN 33.2 pg (28-32); MEAN CORPUSCULAR VOLUME 100.8 fL (81-99); MONOCYTES # (AUTO) 0.4 (0.2-0.8); NEUTROPHILS # (AUTO) 9.4 (2.1-6.9); NEUTROPHILS % 87.8 % (38.7-80.0); PLATELET COUNT 108 x10e3/uL (140-360); RED BLOOD COUNT 3.64 x10e6/uL (4.3-5.7); RED CELL DISTRIBUTION WIDTH 14.6 % (11.7-14.4)
[2017-12-02 10:20] LABS: ANION GAP 9.6 mmol/L (8-16); BLOOD UREA NITROGEN 28 mg/dL (7-26); BUN/CREATININE RATIO 33 (6-25); CALCIUM 8.3 mg/dL (8.4-10.2); CARBON DIOXIDE 24 mmol/L (22-29); CHLORIDE 116 mmol/L (98-107); CREATININE, SERUM 0.84 mg/dL (0.72-1.25); EST GLOMERULAR FILTRATION RATE > 60 ML/MIN (60-); GLUCOSE 137 mg/dL (74-118); POTASSIUM 3.6 mmol/L (3.5-5.1); SODIUM 146 mmol/L (136-145)
[2017-12-02] MEDS ORDERED: FUROSEMIDE INJ 10 MG/ML 4 ML VIAL IV ONE (12:30)
[2017-12-02] MEDS: ATORVASTATIN 20 MG TAB PEG SCH (21:18)
[2017-12-03 00:09] VITALS: BP 135/81
[2017-12-03] MEDS: GUAIFENESIN 200 MG/10 ML UDC PEG SCH ×6 (02:00→22:17)
[2017-12-03] MEDS: ALBUTEROL/IPRATROPIUM 3 ML NEB NEB SCH ×4 (02:05→20:10)
[2017-12-03 05:32] VITALS: BP 128/78
[2017-12-03] MEDS: PIPER-TAZ 3.375 GM 50 ML IV SCH ×3 (06:00→22:16)
[2017-12-03] MEDS: BUDESONIDE 0.5MG/2 ML NEB INH SCH ×2 (06:26→20:10)
[2017-12-03 06:35] LABS: BASOPHILS % 0.2 % (0.0-1.0); EOSINOPHILS % 0.5 % (0.0-6.0); HEMOGLOBIN 12.5 g/dL (14.0-18.0); LYMPHOCYTES # (AUTO) 1.5 (1.0-3.2); LYMPHOCYTES % 17.6 % (18.0-39.1); MEAN CORPUSCULAR HEMOGLOBIN 33.1 pg (28-32); MEAN CORPUSCULAR HGB CONC 32.9 g/dL (31-35); MEAN CORPUSCULAR VOLUME 100.5 fL (81-99); MONOCYTES # (AUTO) 0.5 (0.2-0.8); MONOCYTES % 5.6 % (4.4-11.3); NEUTROPHILS # (AUTO) 6.1 (2.1-6.9); PLATELET COUNT 110 x10e3/uL (140-360); RED BLOOD COUNT 3.78 x10e6/uL (4.3-5.7); RED CELL DISTRIBUTION WIDTH 14.6 % (11.7-14.4)
[2017-12-03 07:13] LABS: ANION GAP 8.2 mmol/L (8-16); BLOOD UREA NITROGEN 29 mg/dL (7-26); BUN/CREATININE RATIO 32 (6-25); CALCIUM 8.4 mg/dL (8.4-10.2); CARBON DIOXIDE 28 mmol/L (22-29); CHLORIDE 113 mmol/L (98-107); EST GLOMERULAR FILTRATION RATE > 60 ML/MIN (60-); GLUCOSE 77 mg/dL (74-118); POTASSIUM 3.2 mmol/L (3.5-5.1); SODIUM 146 mmol/L (136-145)
[2017-12-03 07:56] LABS: LYMPHOCYTES % (MANUAL) 13 % (19-48); METAMYELOCYTES % (MANUAL) 1 % (0-0); MONOCYTES % (MANUAL) 5 % (3.4-9.0); NEUTROPHILS % (MANUAL) 81 % (40-74); PLATELET ESTIMATE SLIGHTLY DECREASED; PLATELET MORPHOLOGY COMMENT FEW LARGE
[2017-12-03 07:57] LABS: ANISOCYTOSIS SLIGHT; HYPOCHROMASIA SLIGHT; RBC MORPHOLOGY COMMENT NORMAL
[2017-12-03 08:00] VITALS: BP 116/73
[2017-12-03] MEDS: BALSAM PERU/CASTOR OIL 60 GM OINT...G. TP SCH ×2 (09:00→17:00)
[2017-12-03] MEDS ORDERED: POTASSIUM CHLORIDE 20MEQ/15ML UDC NG ONE ×2 (09:30→18:45)
[2017-12-03] MEDS: HYDRALAZINE HCL 25 MG TAB PEG SCH ×3 (10:00→21:33)
[2017-12-03] MEDS: LEVETIRACETAM ORAL SOLUTION 500 MG/5 ML SOLN PEG SCH ×2 (10:00→17:52)
[2017-12-03] MEDS: MULTIVITAMINS 5 ML LIQUID GT SCH (10:00)
[2017-12-03] MEDS: ASCORBIC ACID 500 MG TAB PEG SCH ×2 (10:00→17:52)
[2017-12-03] MEDS: ZINC SULFATE 220 MG CAP PEG SCH ×2 (10:00→17:52)
[2017-12-03] MEDS: FAMOTIDINE 20 MG TAB PEG SCH ×2 (10:00→17:52)
[2017-12-03] MEDS: LACTULOSE SYRUP 20 GM/30 ML UDC PEG SCH (10:00)
[2017-12-03] MEDS: MAGNESIUM OXIDE 400 MG TAB PEG SCH ×2 (10:00→17:52)
[2017-12-03] MEDS: ASPIRIN 81 MG CHEW TAB PEG SCH (10:00)
[2017-12-03] MEDS: OYST-CAL-D 500MG TABLET PEG SCH ×2 (10:00→17:52)
--- NOTE | 2017-12-03 11:34 | Diagnostic Imaging Report ---
PROCEDURE: A single AP view of the chest. COMPARISON: 11/27/17 INDICATIONS: FOLLOW UP BRONCHITIS FINDINGS: Lines/tubes: Stable right internal jugular central line. Lungs: The lungs are well inflated. Central peribronchovascular thickening/cuffing. Pleura: There is no significant pleural effusion or pneumothorax. Heart and mediastinum: Unchanged enlarged cardiomediastinal silhouette. Bones: No acute bony abnormality. IMPRESSION: Central peribronchovascular thickening/cuffing which appears slightly decreased when compared to prior exam. Dictated by: Jasper Monahan M.D. on 12/03/2017 at 11:43 Electronically approved by: Jasper Monahan M.D. on 12/03/2017 at 11:43
[2017-12-03] MEDS ORDERED: POTASSIUM CHLORIDE 20 MEQ TAB CR PO STA (11:39)
[2017-12-03 12:00] VITALS: BP 104/70
[2017-12-03] MEDS ORDERED: DEXTROSE 5%/0.45% SOD CHL 1,000 ML IV ONE (12:00)
[2017-12-03] MEDS ORDERED: Calcium Carbonate PEG (12:13)
[2017-12-03] MEDS ORDERED: ZINC SULFATE220 M1 PEG (12:13)
[2017-12-03] MEDS ORDERED: MAGNESIUM OXID400 MG PEG (12:13)
[2017-12-03] MEDS ORDERED: ASCORBIC ACID500 MG PEG (12:13)
[2017-12-03] MEDS: COLLAGENASE 5 GM TUBE TP SCH (15:00)
[2017-12-03 16:00] VITALS: BP 113/68
[2017-12-03 18:28] LABS: ANION GAP 8.4 mmol/L (8-16); BLOOD UREA NITROGEN 26 mg/dL (7-26); BUN/CREATININE RATIO 30 (6-25); CALCIUM 8.2 mg/dL (8.4-10.2); CARBON DIOXIDE 25 mmol/L (22-29); CHLORIDE 112 mmol/L (98-107); CREATININE, SERUM 0.88 mg/dL (0.72-1.25); EST GLOMERULAR FILTRATION RATE > 60 ML/MIN (60-); GLUCOSE 103 mg/dL (74-118); POTASSIUM 3.4 mmol/L (3.5-5.1); SODIUM 142 mmol/L (136-145)
[2017-12-03 20:00] VITALS: BP 135/78
[2017-12-03] MEDS: ATORVASTATIN 20 MG TAB PEG SCH (21:33)
[2017-12-04] VITALS: BP 125/70
[2017-12-04] MEDS: ALBUTEROL/IPRATROPIUM 3 ML NEB NEB SCH ×2 (01:00→07:35)
[2017-12-04 01:24] VITALS: BP 125/70
[2017-12-04] MEDS: GUAIFENESIN 200 MG/10 ML UDC PEG SCH ×2 (02:31→05:31)
[2017-12-04 04:00] VITALS: BP 118/70
[2017-12-04] MEDS: PIPER-TAZ 3.375 GM 50 ML IV SCH (05:31)
[2017-12-04 08:00] VITALS: BP 114/67
[2017-12-04] MEDS ORDERED: AMIODARONE HCL200 MG PEG (08:11)
[2017-12-04] MEDS: ASPIRIN 81 MG CHEW TAB PEG SCH (08:35)
[2017-12-04] MEDS: MULTIVITAMINS 5 ML LIQUID GT SCH (08:35)
[2017-12-04] MEDS: LACTULOSE SYRUP 20 GM/30 ML UDC PEG SCH (08:35)
[2017-12-04] MEDS: OYST-CAL-D 500MG TABLET PEG SCH (08:35)
[2017-12-04] MEDS: FAMOTIDINE 20 MG TAB PEG SCH (08:35)
[2017-12-04] MEDS: MAGNESIUM OXIDE 400 MG TAB PEG SCH (08:35)
[2017-12-04] MEDS: ZINC SULFATE 220 MG CAP PEG SCH (08:35)
[2017-12-04] MEDS: LEVETIRACETAM ORAL SOLUTION 500 MG/5 ML SOLN PEG SCH (08:35)
[2017-12-04] MEDS: HYDRALAZINE HCL 25 MG TAB PEG SCH (08:35)
[2017-12-04] MEDS: ASCORBIC ACID 500 MG TAB PEG SCH (08:35)
--- NOTE | 2017-12-04 19:58 | Discharge Summary ---
ADMISSION DIAGNOSES 1. Hypernatremia. 2. Hypokalemia. 3. Hypertension. 4. Cough. 5. Atrial fibrillation. 6. History of seizures. DISCHARGE DIAGNOSES 1. Hypernatremia. 2. Hypokalemia. 3. Hypertension. 4. Cough. 5. Atrial fibrillation with rapid ventricular rate. 6. History of seizures. 7. Bradycardia. 8. Displaced gastrostomy tube. HISTORY: Patient has a history of hypertension, COPD, CVA, seizures, depression, dementia, hypernatremia, PAF with a G-tube placement and left AKA. HOSPITAL COURSE: A 62-year-old male, presents from [facility] for temperature of 100.1, productive cough and SpO2 of 88% on room air. On admission, a chest x-ray was done which showed hypoinflated lungs with vascular clouding, mild central pulmonary venous congestion. Pulmonary was consulted who started the patient on IV Solu-Medrol, IV Zosyn for suspected aspiration pneumonitis. Patient was started on D5 for hypernatremia. On admission, the sodium was 166. Patient also received free water through his PEG tube to address the sodium. Patient had a stool for blood that was positive and during the hospital stay, GI was consulted due to a clogged G-tube. So, GI consulted and replaced the PEG tube, but did not wish to address the stool positive for blood because the hemoglobin was stable during hospitalization. During the hospitalization, the patient was primarily bradycardic, so metoprolol was held and then at one point, the patient went into atrial fibrillation with RVR. Cardio was consulted who decided to hold the metoprolol and the amiodarone together. Without the 2, the patient's heart rate was 60 or 70s primarily. At the time of discharge, per cardio, they want to continue to hold the amiodarone and metoprolol and anticoagulation due to GI bleed. WBC at the time of discharge was 8.23, hemoglobin of 12.5, hematocrit of 38. Sodium 142, potassium 3.4, which was repleted before the patient left. Flu screen was negative. Vital signs stable. Patient remained afebrile during hospitalization. Patient is to return back to [facility] on the same tube feeding and rate per dietary; same meds minus the amiodarone, metoprolol and anticoagulation. Those can be readdressed at a later date per the doctor at the senior living. Dictated by Juana Vaughan NP. AMANDA THOMAS MD Job#: [id number] GE
[2017-12-04 20:00] VITALS: BP 153/98
== END 2017-12-04 09:23 | DRG 190 ==
LOC: ER 13:52 → ERHOLD 18:40 → IMCU 11-26 23:02 → MED/SURG2 11-28 21:36
PROVIDERS: ADMIT Internal Medicine; ATTEND Internal Medicine
PROC: 02HV33Z Insertion of Infusion Device into Superior Vena Cava, Percutaneous Approach (ICD-10-PCS; 2017-11-25)
PROC: 0D20XUZ Change Feeding Device in Upper Intestinal Tract, External Approach (ICD-10-PCS; principal; 2017-11-29)
DX: J44.0 Chronic obstructive pulmonary disease with (acute) lower respiratory infection (principal); R53.2 Functional quadriplegia; R40.3 Persistent vegetative state; E87.0 Hyperosmolality and hypernatremia; L89.151 Pressure ulcer of sacral region, stage 1; F03.90 Unspecified dementia, unspecified severity, without behavioral disturbance, psychotic disturbance, mood disturbance, and anxiety; Z89.612 Acquired absence of left leg above knee; K92.2 Gastrointestinal hemorrhage, unspecified; K94.23 Gastrostomy malfunction; E87.1 Hypo-osmolality and hyponatremia; I48.0 Paroxysmal atrial fibrillation; I10 Essential (primary) hypertension; J44.9 Chronic obstructive pulmonary disease, unspecified; G40.909 Epilepsy, unspecified, not intractable, without status epilepticus; E87.6 Hypokalemia; F32.9 Major depressive disorder, single episode, unspecified; I69.320 Aphasia following cerebral infarction; F41.9 Anxiety disorder, unspecified; Z74.01 Bed confinement status; Z79.01 Long term (current) use of anticoagulants; E83.51 Hypocalcemia; M24.542 Contracture, left hand; L89.629 Pressure ulcer of left heel, unspecified stage; D50.0 Iron deficiency anemia secondary to blood loss (chronic); J20.9 Acute bronchitis, unspecified
CPT/HCPCS: 36415; 36555; 71010; 76700; 80048; 80053; 81001; 82270; 82948; 83036; 83605; 83735; 83880; 84439; 84443; 84484; 85025; 87040; 87071; 87086; 87205; 87400; 93005; 93306; 94640; 99284; J0360; J0456; J1940; J2543; J2920; J3480; J7050; J7070

== ENCOUNTER 2018-09-05 12:57 | Emergency (ER) | payer MEDICARE, OTHER ==
[~2018-09-05] VITALS: Ht 170.2 cm; Wt 90.7 kg
[~2018-09-05 12:57] MED LIST changes: +ASCORBIC ACID500 MG PEG; +Calcium Carbonate PEG; +MAGNESIUM OXID400 MG PEG; +ZINC SULFATE220 M1 PEG
--- OUTSIDE RECORDS SUMMARY | 2018-09-05 13:00 | XMS REPORT ---
Author Author [facility] Address Unknown Phone Unavailable Care Team Providers Care Senior Administrator Support Name Role Phone AMANDA THOMAS Unavailable Unavailable Problems This patient has no known problems. Allergies, Adverse Reactions, Alerts This patient has no known allergies or adverse reactions. Medications This patient has no known medications. Results Test Description Test Time Test Comments Text Results Atomic Results Result Comments CHEST SINGLE (PORTABLE) [place] [address] Patient Name: RIAN COLEMAN MR #: [id number] : 1955 Age/Sex: 62/M Req #: [id number] Adm Physician: AMANDA THOMAS MD Ordered by: Martina Putnam [employer]ERCIAL DESIGNER Report #: [id number] Location: MED/SURG2 Room/Bed: 200-1 Procedure: [id number] DX/CHEST SINGLE (PORTABLE) Exam Date: 12/03/17 Exam Time: 0900 REPORT STATUS: Signed PROCEDURE: A single AP view of the chest. COMPARISON: 11/27/17 INDICATIONS: FOLLOW UP BRONCHITIS FINDINGS: Lines/tubes: Stable right internal jugular central line. Lungs: The lungs are well inflated. Central peribronchovascular thickening/cuffing. Pleura: There is no significant pleural effusion or pneumothorax. Heart and mediastinum: Unchanged enlarged cardiomediastinal silhouette. Bones: No acute bony abnormality. IMPRESSION: Central peribronchovascular thickening/cuffing which appears slightly decreased when compared to prior exam. Dictated by: Jasper Valdes M.D. on 12/03/2017 at 11:43 Electronically approved by: Jasper Valdes M.D. on 12/03/2017 at 11:43 Dictated By: JASPER VALDES MD Electronical ly Signed By: JASPER VALDES MD on 12/03/171142 Transcribed By: KT on 12/03/17 114 COPY TO: MARTINA PUTNAM NP CHEST SINGLE (PORTABLE) [place] [address] Patient Name: RIAN COLEMAN MR #: [id number] : 1955 Age/Sex: 62/M Req #: [id number] Adm Physician: AMANDA THOMAS MD Ordered by: Martina Putnam COMMERCIAL DESIGNER Report #: [id number] Location: [facility] Room/Bed: [place] [address] Procedure: [id number] DX/CHEST SINGLE (PORTABLE) Exam Date: 11/27/17 Exam Time: 0525 REPORT STATUS: Signed Examination: Single AP view of the chest. COMPARISON: 11/25/2017 INDICATION: Bronchitis DISCUSSION: See impression IMPRESSION: 1. Right internal jugular central venous catheter is unchanged in position. 2. Stable cardiomediastinal contour with mild enlargement of the cardiac shadow and pulmonary venous congestion. No new airspace consolidation. Signed by: Dr. Christiane Mosqueda M.D. on 11/27/2017 7:23 AM Dictated By: CHRISTIANE MOSQUEDA MD 2 Transcribed By: ZACH on 11/27/17722 COPY TO: MARTINA PUTNAM COMMERCIAL DESIGNER US ABDOMEN COMPLETE [facility] [address] [place] [address] Patient Name: RIAN COLEMAN MR #: [id number] : 1955 Age/Sex: 62/M Req #: [id number] Adm Physician: AMANDA THOMAS MD Ordered by: Martina Putnam NP Report #: [id number] Location: [facility] Room/Bed: [place] [address] Procedure: [id number] US/US ABDOMEN COMPLETE Exam Date: 11/27/17 Exam Time: 1057 REPORT STATUS: Signed PROCEDURE: ABDOMINAL ULTRASOUND COMPARISON: Abdominal ultrasound 10/02/2017. INDICATIONS: DISTENTION FINDINGS: Liver: 10.4 cm in length in the right midclavicular line. Normal hepatic parenchymal echogenicity. No focal mass. Main portal vein: 1 cm in caliber. Hepatopedal flow. Gallbladder: Mild wall thickening likely attributable to gallbladder collapse. No calculus or pericholecystic fluid. Common Bile Duct: 0.4 cm in caliber. No echogenic filling defect. Sonographic Dahl's sign: Reported as negative. Right kidney: 10.9 cm in length. No solid or cystic mass, echogenic calculi, or hydronephrosis. Increased parenchymal echogenicity. Left kidney: 9.2 cm in length. No solid or cystic mass, echogenic calculi, or hydronephrosis. Increased parenchymal echogenicity. Spleen: 8.3 cm in length. Normal parenchymal echotexture. Pancreas: The visualized portions of the pancreas are normal. Inferior vena cava: Patent. Aorta: Non-aneurysmal. Ascites: None. CONCLUSION: Collapsed gallbladder without cholelithiasis or sonographic evidence of acute cholecystitis. Increased renal cortical echogenicity suggestive of medical renal disease. Dictated by: Christiane Mosqueda M.D. on 11/27/2017 at 12:17 Electronically approved by: Christiane Mosqueda M.D. on 11/27/2017 at 12:17 Dictated By: CHRISTIANE MOSQUEDA MD 121 Transcribed By: KT on 11/27/17 1217 COPY TO: MARTINA PUTNAM NP CHEST XRAY LINE PLACEMENT [place] [address] Patient Name: RIAN COLEMAN MR #: [id number] : 1955 Age/Sex: 62/M Req #: [id number] Adm Physician: Ordered by: GEOFFREY LEE MD Report #: [id number] Location: ER Room/Bed: Procedure: [id number] DX/CHEST XRAY LINE PLACEMENT Exam Date: 11/25/17 Exam Time: 1755 REPORT STATUS: Signed EXAMINATION: CHEST XRAY LINE PLACEMENT INDICATION: S line placement COMPARISON: Chest x-ray 11/25/2017 at 1420. 10/04/2017 FINDINGS: AP view TUBES and LINES: New right IJ central venous catheter with tip at the high SVC. LUNGS: Lungs are not well inflated. Calcified right hilar lymph nodes. Perihilar venous crowding. There is mild prominence of the central pulmonary vasculature, consistent with pulmonary venous congestion. PLEURA: Trace right pleural effusion along fissure. HEART AND MEDIASTINUM: Cardiac size is moderately enlarged. There are atherosclerotic calcifications within the aorta. BONES AND SOFT TISSUES: No acute osseous lesion. Soft tissues are unremarkable. UPPER ABDOMEN: No free air under the diaphragm. IMPRESSION: 1. New right IJ line with tip at high SVC. No pneumothorax. 2. No change in hypoinflated lungs with vascular crowding. Mild central pulmonary venous congestion. Signed by: Dr. Michael Keenan M.D. on 11/25/2017 6:17 PM Dictated By: MICHAEL KEENAN MD 16 Transcribed By: ZACH on 11/25/171816 COPY TO: GEOFFREY LEE MD CHEST SINGLE (PORTABLE) [place] [address] Patient Name: RIAN COLEMAN MR #: [id number] : 1955 Age/Sex: 62/M Req #: [id number] Adm Physician: Ordered by: GEOFFREY LEE MD Report #: [id number] Location: ER Room/Bed: Procedure: [id number] DX/CHEST SINGLE (PORTABLE) Exam Date: 11/25/17 Exam Time: 1420 REPORT STATUS: Signed EXAMINATION: CHEST SINGLE (PORTABLE) INDICATION: Cough COMPARISON: Chest x-ray 10/04/2017 FINDINGS: AP view TUBES and LINES: None. LUNGS: Lungs are not well inflated. Calcified right hilar lymph nodes. Perihilar venous crowding. There is mild prominence of the central pulmonary vasculature, consistent with pulmonary venous congestion. PLEURA: Trace right pleural effusion along fissure. HEART AND MEDIASTINUM: Cardiac size is moderately enlarged. BONES AND SOFT TISSUES: No acute osseous lesion. Soft tissues are unremarkable. UPPER ABDOMEN: No free air under the diaphragm. IMPRESSION: Hypoinflated lungs with vascular crowding. Mild central pulmonary venous congestion. Signed by: Dr. Michael Keenan M.D. on 11/25/2017 2:40 PM Dictated By: MICHAEL KEENAN MD 1440 Transcribed By: ZACH on 11/25/171439 COPY TO: GEOFFREY LEE MD CHEST SINGLE (PORTABLE) [place] [address] Patient Name: RIAN COLEMAN MR #: [id number] : 1955 Age/Sex: 62/M Req #: [id number] Adm Physician: AMANDA THOMAS MD Ordered by: Martina Putnam COMMERCIAL DESIGNER Report #: [id number] Location: MED/SURG2 Room/Bed: [facility] Procedure: [id number] DX/CHEST SINGLE (PORTABLE) Exam Date: Exam Time: REPORT STATUS: Signed CHEST SINGLE (PORTABLE), 10/04/2017 5:00 AM Technique: CHEST SINGLE (PORTABLE) Comparison: 09/29/2017 Clinical history: Pneumonia Findings: See Impression. Electronic device overlies the right lateral chest wall. Impression: 1. Lines/Tubes: Removal of right PICC. Left PICC or peripheral IV tip overlies the left axilla. 2. Stable cardiomegaly with central vascular congestion and/or mild edema. 3. No consolidation. No pleural effusion. Signed by: Dr Moriah Chiang MD on 10/04/2017 6:39 AM Dictated By: MORIAH CHIANG MD 8 Transcribed By: ZACH on 10/04/17638 COPY TO: MARTINA PUTNAM COMMERCIAL DESIGNER US ABDOMEN COMPLETE [place] [address] Patient Name: RIAN COLEMAN MR #: [id number] : 1955 Age/Sex: 62/M Req #: [id number] Adm Physician: AMANDA THOMAS MD Ordered by: DEISY HOANG MD Report #: [id number] Location: MED/SURG2 Room/Bed: [facility] Procedure: [id number] US/US ABDOMEN COMPLETE Exam Date: 10/02/17 Exam Time: 1617 REPORT STATUS: Signed PROCEDURE: ABDOMINAL ULTRASOUND COMPARISON: None. INDICATIONS: Abdomen Pain FINDINGS: The exam limited by patient's body habitus, overlying bowel gas and patient's inability to hold breath. Feeding tube bandaging/dressing limits scanning window Liver: 12.5 cm. Normal hepatic parenchymal echogenicity. No focal mass. Main portal vein: 0.8 cm. Hepatopedal flow. Gallbladder: No stones, sludge, wall thickening, or pericholecystic fluid Common Bile Duct: 0.3 cm. No echogenic filling defect. Sonographic Dahl's sign: Negative Right kidney: 11.1 cm. No solid or cystic mass, echogenic calculi, or hydronephrosis. Normal parenchymal echogenicity. Left kidney: 10.5 cm. No solid or cystic mass, echogenic calculi, or hydronephrosis. Normal parenchymal echogenicity. Spleen: Not well-visualized. This Pancreas: The visualized portions of the neck are normal. Inferior vena cava: Proximal portion is unremarkable. Mid-distal portions are obscured by overlying gas.. Aorta: Proximal portion is unremarkable. [place] and distal portions are obscured by overlying gas.. Ascites: None. CONCLUSION: 1. Limited exam, as described above. 2. No sonographic evidence of cholelithiasis or cholecystitis. Dk Knowles M.D. Dictated by: Dk Knowles M.D. on 10/02/2017 at 17:40 Electronically approved by: Dk Knowles M.D. on 10/02/2017 at 17:40 Dictated By: DK KNOWLES MD 39 Transcribed By: KT on 10/02/171739 COPY TO: DEISY HOANG MD CHEST XRAY LINE PLACEMENT [place] [address] Patient Name: RIAN COLEMAN MR #: [id number] : 1955 Age/Sex: 62/M Req #: [id number] Adm Physician: AMANDA THOMAS MD Ordered by: AMANDA THOMAS MD Report #: [id number] Location: MED/SURG2 Room/Bed: [facility] Procedure: [id number] DX/CHEST XRAY LINE PLACEMENT Exam Date: 09/30/17 Exam Time: 2345 REPORT STATUS: Signed EXAMINATION: CHEST XRAY LINE PLACEMENT INDICATION: PICC line placement COMPARISON: None available at the time of interpretation. FINDINGS: TUBES and LINES: Right upper extremity PICC line with tip visualized at the level of the mid SVC LUNGS: Lungs are not well inflated. There are bibasilar atelectasis. There is mild prominence of the central pulmonary vasculature, consistent with pulmonary venous congestion. PLEURA: No pleural effusion or pneumothorax. HEART AND MEDIASTINUM: The cardiomediastinal silhouette is unremarkable. BONES AND SOFT TISSUES: No acute osseous lesion. Posttraumatic changes in the right mid hemithorax involving the lateral fifth rib Soft tissues are unremarkable. UPPER ABDOMEN: No free air under the diaphragm. IMPRESSION: No acute thoracic abnormality. PICC line as described above Signed by: Dr. Cedrick Sharma M.D. on 09/30/2017 12:19 AM Dictated By: CEDRICK GARCIA MD Transcribed By: ZACH on 09/30/1718 COPY TO: AMANDA THOMAS MD CHEST SINGLE (PORTABLE) [place] [address] Patient Name: RIAN COLEMAN MR #: [id number] : 1955 Age/Sex: 62/M Req #: [id number] Adm Physician: Ordered by: JINA MEJIA MD Report #: [id number] Location: ER Room/Bed: Procedure: [id number] DX/CHEST SINGLE (PORTABLE) Exam Date: 09/26/17 Exam Time: 181 REPORT STATUS: Signed PROCEDURE: A single AP view of the chest. COMPARISON: None. INDICATIONS: SHORT OF BREATH FINDINGS: Lines/tubes: None. Lungs: The lungs are well inflated. No consolidation. Pleura: Questionable small right pleural effusion. Heart and mediastinum: Prominence of the cardiac silhouette, which may be partly due to AP projection. Central pulmonary venous congestion. Bones: No acute bony abnormality. IMPRESSION: 1. prominence of the cardiac silhouette and central pulmonary venous congestion. Questionable small right pleural effusion. Dk Knowles M.D. Dictated by: Dk Knowles M.D. on 09/26/2017 at 18:56 Electronically approved by: Dk Knowles M.D. on 09/26/2017 at 18:56 Dictated By: DK KNOWLES MD 55 Transcribed By: INFCE on 09/26/171855 COPY TO: JINA MEJIA MD
[2018-09-05 13:56] LABS: BASOPHILS % 0.6 % (0.0-1.0); EOSINOPHILS # (AUTO) 0.2 (0.0-0.4); EOSINOPHILS % 3.7 % (0.0-6.0); HEMATOCRIT 48.5 % (38.2-49.6); HEMOGLOBIN 15.8 g/dL (14.0-18.0); LYMPHOCYTES % 40.7 % (18.0-39.1); MEAN CORPUSCULAR HGB CONC 32.6 g/dL (31-35); MEAN CORPUSCULAR VOLUME 101.3 fL (81-99); MONOCYTES # (AUTO) 0.7 (0.2-0.8); MONOCYTES % 13.4 % (4.4-11.3); NEUTROPHILS # (AUTO) 2.1 (2.1-6.9); NEUTROPHILS % 41.6 % (38.7-80.0); PLATELET COUNT 154 x10e3/uL (140-360); RED BLOOD COUNT 4.79 x10e6/uL (4.3-5.7); RED CELL DISTRIBUTION WIDTH 14.2 % (11.7-14.4)
[2018-09-05 13:58] LABS: CLARITY,URINE SL CLOUDY (CLEAR); COLOR,URINE YELLOW (YELLOW); LEUKOCYTE ESTERASE ,URINE 2+ (NEGATIVE)
[2018-09-05 13:59] LABS: BILIRUBIN,URINE NEGATIVE (NEGATIVE); KETONES,URINE NEGATIVE (NEGATIVE); NITRITE,URINE POSITIVE (NEGATIVE); PROTEIN,URINE DIPSTICK NEGATIVE (NEGATIVE); URINE UROBILINOGEN 1 mg/dL (0.2 - 1)
[2018-09-05 14:08] LABS: AMORPHOUS SEDIMENT,URINE MANY (FEW); BACTERIA,URINE MANY /HPF
[2018-09-05 16:00] LABS: ALANINE AMINOTRANSFERASE 91 IU/L (0-55); ALBUMIN 2.9 g/dL (3.5-5.0); ALBUMIN/GLOBULIN RATIO 0.7 (0.8-2.0); ALKALINE PHOSPHATASE 55 IU/L (40-150); ANION GAP 13.1 mmol/L (8-16); BLOOD UREA NITROGEN 19 mg/dL (7-26); BUN/CREATININE RATIO 22 (6-25); CALCIUM 9.4 mg/dL (8.4-10.2); CARBON DIOXIDE 26 mmol/L (22-29); CHLORIDE 105 mmol/L (98-107); CREATININE, SERUM 0.85 mg/dL (0.72-1.25); EST GLOMERULAR FILTRATION RATE > 60 ML/MIN (60-); GLUCOSE 79 mg/dL (74-118); POTASSIUM 4.1 mmol/L (3.5-5.1); SODIUM 140 mmol/L (136-145)
[2018-09-05] MEDS ORDERED: CEFTRIAXONE SOD 1 GM VIAL IM ONE (16:00)
[2018-09-05] MEDS ORDERED: LIDOCAINE HCL 1% LOCAL INJ 20 ML VIAL INJ NR (16:45)
--- NOTE | 2018-09-05 17:07 | Diagnostic Imaging Report ---
Examination: Single AP view of the chest. COMPARISON: Portable chest 12/03/2017 INDICATION: Shortness of breath IMPRESSION: Exam limited by patient rotation. 1. Lines and Tubes: None 2. Lungs are hypoinflated. No definite consolidation or effusion.. 3. Enlarged cardiac silhouette. Central pulmonary venous congestion and mild perihilar interstitial edema suggesting fluid overload. 4. No acute bony abnormalities. Signed by: Dr. Dk Coyle M.D. on 09/05/2018 5:04 PM
[2018-09-05 19:58] VITALS: BP 163/83
== END 2018-09-05 21:51 ==
LOC: ER 12:57
DX: N30.90 Cystitis, unspecified without hematuria (principal); F03.90 Unspecified dementia, unspecified severity, without behavioral disturbance, psychotic disturbance, mood disturbance, and anxiety; I10 Essential (primary) hypertension; E11.9 Type 2 diabetes mellitus without complications; H54.7 Unspecified visual loss; I25.10 Atherosclerotic heart disease of native coronary artery without angina pectoris; Z89.612 Acquired absence of left leg above knee
CPT/HCPCS: 36415; 71045; 80053; 81001; 83880; 85025; 87086; 87186; 93005; 99284; J0696; J2001

== ENCOUNTER 2019-10-30 23:48 | Emergency (ER) | payer MEDICARE, OTHER ==
[~2019-10-30] VITALS: Ht 170.2 cm; Wt 90.7 kg
--- NOTE | 2019-10-31 21:40 | NUR ---
ALEYDA ENP IN ROOM TO PLACE G TUBE 20F; TUBE PLACED, XRAY PLACEMENT ORDERED
== END 2019-10-31 01:00 ==
LOC: ER 23:48
DX: Z43.1 Encounter for attention to gastrostomy (principal); I10 Essential (primary) hypertension; F41.9 Anxiety disorder, unspecified; J44.9 Chronic obstructive pulmonary disease, unspecified; Z89.612 Acquired absence of left leg above knee
CPT/HCPCS: 99282

== ENCOUNTER 2019-10-31 21:10 | Emergency (ER) | payer MEDICARE, OTHER ==
[~2019-10-31] VITALS: Ht 170.2 cm; Wt 90.7 kg
[2019-10-31] MEDS ORDERED: DIATRIZOATE MEGL/DIATRIZOA SOD 30 ML BTL PO ONE (21:39)
--- NOTE | 2019-10-31 22:09 | Diagnostic Imaging Report ---
EXAM: Abdomen Radiograph 1 View INDICATION: Gastrostomy tube placement/ position check COMPARISON: None FINDINGS: Instilled positive contrast through the percutaneous gastrostomy tube opacifies the gastric lumen and proximal duodenum. No evidence of leak or retained contrast within the tube tract. No abnormalities in the lower chest. Normal volume of stool in the colon. No dilated loops of small bowel. No abnormal soft tissue masses. No pneumoperitoneum. No acute osseous abnormality. Suspect a IVC filter with tip at the L3 inferior endplate. IMPRESSION: Instilled positive contrast through the percutaneous gastrostomy tube opacifies the gastric lumen and proximal duodenum. No evidence of leak or retained contrast within the tube tract. Signed by: Santos tSein DO on 10/31/2019 10:06 PM
[2019-10-31 22:13] VITALS: BP 178/84
== END 2019-10-31 22:22 ==
LOC: ER 21:10
DX: Z43.1 Encounter for attention to gastrostomy (principal); F03.90 Unspecified dementia, unspecified severity, without behavioral disturbance, psychotic disturbance, mood disturbance, and anxiety; I10 Essential (primary) hypertension; J44.9 Chronic obstructive pulmonary disease, unspecified; F41.9 Anxiety disorder, unspecified
CPT/HCPCS: 74018; 99283